=== PATIENT | male | born 1945 | race Caucasian/White ===

== ENCOUNTER → 2019-03-26 | Outpatient (REF) | payer OTHER, MEDICARE, BC ==
[~2019-03-26] MED LIST: ACET65TA; BENI20TA11; COUM1TAB17; FLOM0.4C39; LIPI20TA; PERC7.5T8; TRIC145T19
[2019-03-26 16:27] LABS: BLOOD UREA NITROGEN 20 MG/DL (7-18); CREATININE FOR GFR 1.14 MG/DL (0.70-1.30); GLOMERULAR FILTRATION RATE > 60.0 (>42)
== END ==
LOC: M LABDRAW1 11:24
PROVIDERS: ATTEND Orthopaedic Surgery
DX: M19.071 Primary osteoarthritis, right ankle and foot (principal)